=== PATIENT | male | born 1970 | race African-American/Black ===

== ENCOUNTER 2019-04-10 13:13 | Emergency (ER) | payer OTHER ==
[~2019-04-10] VITALS: Ht 175.3 cm; Wt 107.5 kg
[2019-04-10] MEDS ORDERED: IBUPROFEN 800 MG TAB PO ONE (16:30)
[2019-04-10 16:39] VITALS: BP 135/72
== END 2019-04-10 13:48 | disposition home or self-care (01) ==
LOC: ER 13:13
DX: M54.5 Low back pain (principal)
CPT/HCPCS: 72100